=== PATIENT | male | born 1985 | race Caucasian/White ===

== ENCOUNTER → 2019-11-18 15:54 | Outpatient (BNVA) | payer OTHER, SELFPAY | PROVIDERS: Family Provider Family Medicine; PCP Family Medicine; Visit Provider Family Medicine | DX: E78.5 Hyperlipidemia, unspecified (principal); F41.9 Anxiety disorder, unspecified | CPT/HCPCS: 36415; 80053 ==

== ENCOUNTER → 2019-11-27 10:14 | Outpatient (BNVA) | payer OTHER, SELFPAY | PROVIDERS: Family Provider Family Medicine; PCP Family Medicine; Visit Provider Nurse Practitioner Family | DX: R11.2 Nausea with vomiting, unspecified (principal); K52.9 Noninfective gastroenteritis and colitis, unspecified | CPT/HCPCS: 87804 ==

== ENCOUNTER → 2020-03-31 13:16 | Outpatient (BNVA) | payer OTHER, SELFPAY | PROVIDERS: Family Provider Family Medicine; PCP Family Medicine; Visit Provider Family Medicine | DX: E78.5 Hyperlipidemia, unspecified (principal) | CPT/HCPCS: 80061 ==

== ENCOUNTER 2023-10-13 08:51 | Observation (INO) | payer BC, SELFPAY ==
[2023-10-13] VITALS (11 sets, daily range): BP systolic 135–163; BP diastolic 82–92; PULSE 59–81; RESP 12–27; TEMP 36.3–37.2; O2SAT 96–100; BMI 29.0
--- NOTE | 2023-10-13 09:04 | ECG_ITS ---
[facility] Test Date: 2023-10-13 Pat Name: Jourdan Green Department: Room: Gender: Male Supervisor [employer]: : 1985 Requested By: Jay Dolan Order Number: [id number] MD: Willam Martínez M.D. Measurements Intervals [place] Rate: 60 P: 37 [place]: 159 QRS: 1 QRSD: 105 T: 24 QT: 417 QTc: 418 Interpretive Statements SINUS RHYTHM No previous ECG available for comparison Electronically Signed On 10-13-2023 9:47:38 LAUNDRY TECHNICIAN by Willam Martínez M.D. [id number]
--- NOTE | 2023-10-13 09:06 | XRR_ITS ---
PROCEDURE INFORMATION: Exam: XR Chest Exam date and time: 10/13/2023 9:15 AM Age: 37 years old Clinical indication: Angina; Additional info: Chest pain TECHNIQUE: Imaging protocol: Radiologic exam of the chest. Views: 1 view. COMPARISON: No relevant prior studies available. FINDINGS: Lungs: Mild linear atelectasis versus scarring in the left lung base. No consolidation. Pleural spaces: Unremarkable. No pleural effusion. No pneumothorax. Heart/Mediastinum: Unremarkable. No cardiomegaly. Bones/joints: Unremarkable. XR/XR chest 1V portable [id number] IMPRESSION: No acute findings.
--- NOTE | 2023-10-13 09:15 | ED_ITS ---
HPI - Chest Pain 2 General: Chief Complaint: Chest Pain Stated Complaint: chest pains, abd pains Time Seen by Provider: 10/13/23 08:52 History of Present Illness: Patient presents to the ER with right upper quadrant abdominal epigastric type pain that radiates into his chest. Patient states his pain started yesterday and throughout the night he becomes very nauseous. He threw up multiple times throughout the night and cannot keep anything down. Patient has never been like this before. Patient has had a least 3 abdominal surgeries. For hernia repair. Review of Systems 2 General: Reports: 10 or more systems reviewed and unremarkable except in HPI and below PFSH ED 2 PFSH: Medical History (Updated 10/13/23 @ 10:58 by Jay Dolan DO) Dyslipidemia Anxiety and depression H/O fracture of lower leg Surgical History H/O vasectomy H/O hernia repair x3 Family History Other Diabetes Lupus Psychiatric illness Social History Smoking and tobacco/nicotine status: current every day tobacco/nicotine user cigarettes Packs smoked per day: 1.5 Alcohol intake: current Alcohol intake frequency: holidays/special occasions only Substance/Drug Use: never Physical Exam 2 Const: COMMON NORMALS: no acute distress, average body habitus, patient oriented x3, no limitations, healthy appearing, alert and well nourished HENMT: COMMON NORMALS: normocephalic, atraumatic, hearing grossly normal bilaterally, external ears normal, Normal external nose present, moist oral mucous membranes and oropharynx normal HEAD & SCALP: normocephalic and atraumatic NOSE: Normal external nose present EXTERNAL EAR: Yes external ears normal Neck/C-Spine: COMMON NORMALS: full ROM, no lymphadenopathy, supple, no meningeal signs, no JVD and Thyroid normal THYROID: Thyroid normal Chest: COMMONS NORMALS: normal inspection of the chest and normal palpation of entire chest wall Resp: COMMON NORMALS: normal respiratory effort, No retractions, No use of accessory muscles and clear to auscultation bilaterally AUSCULTATION: clear to auscultation bilaterally Cardio: COMMON NORMALS: no JVD, regular rate, regular rhythm, S1 normal heart sound present, S2 normal heart sound present, No gallops present (Cardio), No clicks present (Cardio), No murmurs present (Cardio) and No rub (Cardio) R ATE: regular rate RHYTHM: regular rhythm HEART SOUNDS: S1 normal heart sound present and S2 normal heart sound present GI: COMMON NORMALS: Normal to inspection, nondistended, normoactive bowel sounds present, Soft to palpation, No hepatosplenomegaly present and no masses; negative for non-tender (Tender to palpate right upper quadrant epigastric region.) PALPATION: Yes Soft to palpation and Yes No hepatosplenomegaly present Neuro: COMMON NORMALS: patient oriented x3 SENSORIUM/ORIENTATION: Yes alert MENINGEAL SIGNS: Yes no meningeal signs Course 2 Vital Signs: Vital signs: Vital Signs Temperature 98 F 10/13/23 09:00 Pulse Rate 59 L 10/13/23 09:04 Respiratory Rate 18 10/13/23 09:04 Blood Pressure 153/91 10/13/23 09:04 Pulse Oximetry 98 10/13/23 09:04 Oxygen Delivery Me thod Room Air 10/13/23 09:00 MDM - Chest Pain Medical Decision Making Patient workup for his right upper quadrant epigastric abdominal pain that end up showing a white count of 16,000 and acute appendicitis per CT scan. Dr. Menendez was consulted to come to the ER and evaluated the patient and agreed to take him to surgery. Dr. Menendez put the orders in. Differential Diagnosis Unlikely acute massive pulmonary embolism, acute respiratory failure, acute myocardial infarction, cardiac arrest or sudden cardiac Medical Records I reviewed the patient's medical records. Lab Data I reviewed the patient's lab results. 10/13/23 09:08 10/13/23 09:08 Radiology Impressions Chest X-Ray 10/13/23 09:06 IMPRESSION: No acute findings. Abdomen/Pelvis CT 10/13/23 09:53 IMPRESSION: 1. Acute uncomplicated appendicitis. 2. Hepatic steatosis. ADDENDUM: 10/13/23 1034 THIS REPORT CONTAINS FINDINGS THAT MAY BE CRITICAL TO PATIENT CARE. The findings were verbally communicated via telephone conference with Jay Hsokins at 10:32 AM PACKING MACHINE FEEDER on 10/13/2023. The findings were acknowledged and understood. Laboratory Results WBC 16.25 10^3/uL (3.29-11.43) H 10/13/23 09:08 RBC 5.40 10^6/uL (3.85-5.65) 10/13/23 09:08 Hgb 16.50 g/dL (11.27-16.99) 10/13/23 09:08 Hct 47.8 % (37-53) 10/13/23 09:08 MCV 88.5 fl (82-101) 10/13/23 09:08 MCH 30.6 pg (27-33) 10/13/23 09:08 MCHC 34.5 g/dL (30-55) 10/13/23 09:08 RDW 12.3 % (12.1-15.1) 10/13/23 09:08 Plt Count 251 10^3/cmm (157-399) 10/13/23 09:08 MPV 9.8 fL (7.4-10.4) 10/13/23 09:08 Neut % (Auto) 88.8 % 10/13/23 09:08 Lymph % (Auto) 8.1 % 10/13/23 09:08 Cam[place] % (Auto) 2.4 % 10/13/23 09:08 Eos % (Auto) 0.1 % 10/13/23 09:08 Baso % (Auto) 0.2 % 10/13/23 09:08 Neut # (Auto) 14.45 10^3/uL (1.8-7.7) H 10/13/23 09:08 Lymph # (Auto) 1.3 10^3/uL (0.8-4.8) 10/13/23 09:08 [place] # (Auto) 0.4 10^3/uL (0.2-0.9) 10/13/23 09:08 Eos # (Auto) 0.0 10^3/uL (0.0-0.8) 10/13/23 09:08 Baso # (Auto) 0.0 10^3/uL (0.0-0.1) 10/13/23 09:08 Nucleated RBC % (auto) 0 % 10/13/23 09:08 Nucleated RBCs # 0.0 /100WBC 10/13/23 09:08 Sodium 138 mmol/L (136-145) 10/13/23 09:08 Potassium 4.6 mmol/L (3.5-5.1) 10/13/23 09:08 Chloride 103 mmol/L (98-107) 10/13/23 09:08 Carbon Dioxide 26 mmol/L (22-29) 10/13/23 09:08 Anion Gap 13.6 (5-19) 10/13/23 09:08 BUN 9 mg/dL (6-20) 10/13/23 09:08 Creatinine 0.8 mg/dL (0.7-1.2) 10/13/23 09:08 GFR Calculation 108.8 mL/min (90-130) 10/13/23 09:08 Glucose 130 mg/dL (65-115) H 10/13/23 09:08 Calculated Osmolality 286 mOsm/kg (285-295) 10/13/23 09:08 Calcium 10.1 mg/dL (8.5-10.5) 10/13/23 09:08 Magnesium 1.8 mg/dL (1.7-2.3) 10/13/23 09:08 Total Bilirubin 0.4 mg/dL (0.15-1.2) 10/13/23 09:08 AST 30 U/L (0-40) 10/13/23 09:08 ALT 46 U/L (0-41) H 10/13/23 09:08 Alkaline Phosphatase 77 U/L (40-130) 10/13/23 09:08 Troponin T Baseline < 6 ng/L (0-15) 10/13/23 09:08 Total Protein 7.4 g/dL (6.6-8.7) 10/13/23 09:08 Albumin 4.8 g/dL (3.5-5.2) 10/13/23 09:08 Globulin 2.6 g/dL (1.3-4.6) 10/13/23 09:08 Lipase 21 U/L (13-60) 10/13/23 09:08 All radiology interpretation(s) finalized by discharge EKG Data EKG 1: I personally reviewed and interpreted this EKG as follows: EKG interpretation date: 10/13/23 EKG interpretation time: 09:01 Prior EKG tracings: not available for review Interpretation: EKG showed ventricular rate 60 bpm, GA interval 159, QRS duration 105, QTc of 418, sinus rhythm, no ST-T wave changes Discharge Plan Discharge Patient Disposition: Admitted As Inpatient Clinical Impression: Acute appendicitis Condition: Stable Prescriptions: No Action No Known Home Medications Referrals: Adriane Malone DO [Primary Care Provider] - Coding Level of Care Code ED Middleware Consultant for Ruy Gandara
[2023-10-13 09:17] LABS: Basophils % 0.2 %; Eosinophils % 0.1 %; Hematocrit 47.8 % (37-53); Lymphocytes # 1.3 10^3/uL (0.8-4.8); Lymphocytes % 8.1 %; Mean Corpuscular HGB Conc 34.5 g/dL (30-55); Mean Corpuscular Hemoglobin 30.6 pg (27-33); Mean Corpuscular Volume 88.5 fl (82-101); Mean Platelet Volume 9.8 fL (7.4-10.4); Monocytes # 0.4 10^3/uL (0.2-0.9); Monocytes % 2.4 %; Neutrophils # 14.45 10^3/uL (1.8-7.7); Neutrophils % 88.8 %; Nucleated Red Blood Cells % 0 %; Platelet Count 251 10^3/cmm (157-399); Red Cell Distribution Width 12.3 % (12.1-15.1); White Blood Count 16.25 10^3/uL (3.29-11.43)
[2023-10-13 09:35] LABS: Troponin(5th) Baseline < 6 ng/L (0-15)
[2023-10-13 09:46] LABS: Alanine Aminotransferase 46 U/L (0-41); Albumin Level 4.8 g/dL (3.5-5.2); Alkaline Phosphatase 77 U/L (40-130); Blood Urea Nitrogen 9 mg/dL (6-20); Calcium 10.1 mg/dL (8.5-10.5); Carbon Dioxide 26 mmol/L (22-29); Chloride 103 mmol/L (98-107); Globulin 2.6 g/dL (1.3-4.6); Glomerular Filtration Rate 108.8 mL/min (90-130); Glucose 130 mg/dL (65-115); Lipase 21 U/L (13-60); Osmolality Calculated 286 mOsm/kg (285-295); Sodium 138 mmol/L (136-145); Total Bilirubin 0.4 mg/dL (0.15-1.2); Total Protein 7.4 g/dL (6.6-8.7)
[2023-10-13 09:50] LABS: Anion Gap 13.6 (5-19); Aspartate Amino Transferase 30 U/L (0-40); Potassium 4.6 mmol/L (3.5-5.1)
--- NOTE | 2023-10-13 09:53 | CTR_ITS ---
PROCEDURE INFORMATION: Exam: CT Abdomen And Pelvis With Contrast Exam date and time: 10/13/2023 10:09 AM Age: 37 years old Clinical indication: Abdominal pain; Localized; Right upper quadrant (ruq); Prior surgery; Surgery date: 6+ months; Surgery type: Hernia x 3; Additional info: Ruq/epigastric pain n/v TECHNIQUE: Imaging protocol: Computed tomography of the abdomen and pelvis with contrast. Radiation optimization: All CT scans at this facility use at least one of these dose optimization techniques: automated exposure control; mA and/or kV adjustment per patient size (includes targeted exams where dose is matched to clinical indication); or iterative reconstruction. Contrast material: OMNI 350; Contrast volume: 100 ml; Contrast route: INTRAVENOUS (IV); REPORTING DATA: Count of CT and Cardiac NM exams in prior 12 months: This patient has received 0 known CTs and 0 known cardiac nuclear medicine studies in the 12 months prior to the current study. COMPARISON: CR (CHEST, ) 10/13/2023 9:15 AM RADIATION DOSE METRICS: Total DLP (mGy-cm): 617.17 FINDINGS: Lungs: Mild dependent atelectasis. Liver: Diffusely hypoattenuating liver with relative sparing adjacent to the gallbladder fossa. Gallbladder and bile ducts: Normal. No calcified stones. No ductal dilation. Pancreas: Normal without ductal dilatation. Spleen: Normal. Adrenal glands: Normal. No mass. Kidneys and ureters: Normal. No hydronephrosis. Stomach and bowel: Unremarkable. No obstruction. No mucosal thickening. Appendix: Dilated appendix measuring 1.1 cm in diameter with heterogeneous contents and mild periappendiceal fat stranding. Intraperitoneal space: No free air, free fluid, or well-organized fluid collection. Vasculature: Unremarkable. No abdominal aortic aneurysm. Lymph nodes: No enlarged lymph nodes. Urinary bladder: Urinary bladder is unremarkable. Reproductive: Unremarkable as visualized. Bones/joints: No acute fracture. Bilateral sacroiliac joint degenerative change. Mild lumbar spine degenerative changes. Soft tissues: Small fat containing umbilical and right inguinal hernias. CT/CT abdomen pelvis w con* [id number] IMPRESSION: 1. Acute uncomplicated appendicitis. 2. Hepatic steatosis.
[2023-10-13] MEDS: ketorolac 30 mg/mL INJ IVP (09:57)
[2023-10-13] MEDS: ondansetron 2 mg/ML SDV 2 mL 4 MG IVP ×3 (09:57→15:33)
[2023-10-13] MEDS: sodium chloride 0.9% 1,000 ML 999 ML IV (09:57)
[2023-10-13 10:00] LABS: Magnesium 1.8 mg/dL (1.7-2.3)
--- NOTE | 2023-10-13 11:03 | P.HP_ITS ---
Providers/Chief Complaint 2 Admitting Physician: Shon Primary Care Provider: Adriane Malone DO Chief Complaint: chest pains, abd pains History of Present Illness Jourdan Green is a 37 year old male who presents with a 12 to 18-hour history of abdominal pain. The patient's had multiple episodes of emesis. He denies fever or chills. He denies constipation or diarrhea. The patient did have a couple bites of dinner last night at around 7 PM. The patient never had pain like this before. The pain started in his right lower quadrant. The patient's pain has not moved. The pain is worse with moving. The pain feels better with the patient being stationary. Review of Systems 2 General: Reports: 10 or more systems reviewed and unremarkable except in HPI and below Medications/Allergies Home Medications Medication Instructions Recorded Confirmed Last Taken Type No Known Home Medications 10/13/23 10/13/23 Unknown History Allergies Allergy/AdvReac Type Severity Reaction Status Date / Time No Known Allergies Allergy Verified 10/13/23 10:02 PFSH Acute 2 PFSH: Medical History Dyslipidemia Anxiety and depression H/O fracture of lower leg Surgical History H/O vasectomy H/O hernia repair x3 Family History Other Diabetes Lupus Psychiatric illness Social History Smoking and tobacco/nicotine status: current every day tobacco/nicotine user cigarettes Packs smoked per day: 1.5 Alcohol intake: current Alcohol intake frequency: holidays/special occasions only Substance/Drug Use: never Vitals/I&O/Wt Last Vital Signs Temp 98 F 10/13/23 09:00 Pulse 59 L 10/13/23 09:04 Resp 18 10/13/23 09:04 BP 153/91 10/13/23 09:04 Pulse Ox 98 10/13/23 09:04 O2 Del Method Room Air 10/13/23 09:00 Weight last 48 hrs Weight 180 lb Physical Exam 2 Narrative: General: No acute distress HEENT: Is normocephalic atraumatic Lungs: Clear to auscultation Heart: Regular rate and rhythm without murmurs. There is no S3 or S4. There is no rubs clicks or JVD noted Abdomen: Soft, nondistended, right lower quadrant tenderness with rebound. The patient has a positive Rovsing sign. There are no masses that I can appreciate. There is no hernias that I can appreciate. There is no hepatosplenomegaly Extremities: There is no obvious deformities or point tenderness suggestive of a fracture. The patient has no clubbing cyanosis or edema Neurologic: The patient is awake, alert, oriented x 3. The patient's Jorge L Coma Scale is 15. The patient moves all 4 extremities without difficulty. The patient's [place] Coma Scale is 15. The patient sensations intact to light touch throughout. Data 10/13/23 09:08 10/13/23 09:08 Attestation for Other Data: I personally reviewed and interpreted the following: (Labs and CT scan of the abdomen and pelvis) A&P Assessment and plan (1) Acute appendicitis: Will admit the patient to the surgery service. Will start the patient on Zosyn. Will schedule the patient for a laparoscopic appendectomy. The risk and benefits of this procedure been explained to the patient. The patient seems to understand the risk and benefits and would like to proceed. The patient asked if he can go home tonight. I told the patient I would like to keep the patient overnight for an additional dose of IV antibiotics. If he insists on going home he can sign out AGAINST MEDICAL ADVICE. Qualifiers: Acute appendicitis type: with localized peritonitis Appendicitis abscess presence: without abscess Appendicitis gangrene presence: without gangrene Appendicitis perforation presence: without perforation Qualified Code(s): K35.30 - Acute appendicitis with localized peritonitis, without perforation or gangrene Attestations 2 Medical Necessity Statement*: Admit for operative intervention Coding Level of Care Code 04425 Diagnoses Acute appendicitis K35.30 Acute appendicitis type: with localized peritonitis Appendicitis abscess presence: without abscess Appendicitis gangrene presence: without gangrene Appendicitis perforation presence: without perforation
[2023-10-13] MEDS: piperacillin-tazobactam 4.5 GM in sodium chloride 0.9% (plus) 50 ML IV (11:17)
[2023-10-13] MEDS: sodium chloride 0.9% 1,000 ML 125 ML IV ×2 (11:31→21:11)
[2023-10-13] MEDS: nicotine 21 mg Patch 1 PATCH TRANSDERMA (11:32)
[2023-10-13 11:36] LABS: Troponin 5 2HR 6.25 ng/L (0-15); Troponin 5 2HR Delta 0.25001 ABS# (0-10)
--- NOTE | 2023-10-13 13:30 | PC.NURSE ---
Pt had Zosyn in ED. No Ortho Nurse antibiotic per Dr Menendez
--- NOTE | 2023-10-13 13:59 | P.ANESASSM_ITS ---
Pre-Anesthetic Assessment Height/Weight: Height 1.68 m Weight 81.647 kg Temp Pulse Resp BP Pulse Ox O2 Del Method 98.9 F 60 18 144/91 97 Room Air 10/13/23 13:00 10/13/23 13:00 10/13/23 13:00 10/13/23 13:00 10/13/23 13:00 10/13/23 13:00 Preop Diagnosis: abdominal pain Operation Date: 10/13/23 12:35 Proposed Procedures p Laparoscopic Appendectomy(Right) - Espinoza Menendez MD Familial anesthetic complications: none Was Beta Tanika taken within 24 hours: N/A Was Clonidine taken within 24 hours: N/A Social Tobacco and No alcohol Exam alert, oriented x 3 and regular rate & rhythm Airway Submandibular: within normal limits Cervical ROM: within normal limits Mallampati: Class II Dentition: chipped (Poor dentition) Comments: Comments: [place] [facility] Chronic Obstructive Pulmonary Disease Metabolic Hyperlipidemia Neuropsych Anxiety and Depression Anesthetic Plan ASA status: 2E Anesthesia: General (RSI) Medications/Allergies Home Medications Medication Instructions Recorded Confirmed Last Taken Type No Known Home Medications 10/13/23 10/13/23 Unknown History Allergies Allergy/AdvReac Type Severity Reaction Status Date / Time No Known Allergies Allergy Verified 10/13/23 12:54 Current Medications Generic Name Dose Route Start Last Admin Trade Name Freq PRN Reason Stop Dose Admin Sodium Chloride 1,000 mls @ 125 mls/hr 10/13/23 10:45 10/13/23 11:31 Sodium Chloride 0.9% IV 125 mls/hr .Q8H SISI Administration PFSH Anesthesia Medical History Dyslipidemia Anxiety and depression H/O fracture of lower leg Surgical History H/O vasectomy H/O hernia repair x3 Family History Other Diabetes Lupus Psychiatric illness Social History Smoking and tobacco/nicotine status: current every day tobacco/nicotine user cigarettes Packs smoked per day: 1.5 Alcohol intake: current Alcohol intake frequency: holidays/special occasions only Substance/Drug Use: never Data Anesthesia 10/13/23 09:08 10/13/23 09:08 Short CBC 10/13/23 Range/Units 09:08 WBC 16.25 H (3.29-11.43) 10^3/uL Hgb 16.50 (11.27-16.99) g/dL Hct 47.8 (37-53) % MCV 88.5 (82-101) fl Plt Count 251 (157-399) 10^3/cmm Neut % (Auto) 88.8 % Neut # (Auto) 14.45 H (1.8-7.7) 10^3/uL BMP 10/13/23 09:08 Sodium 138 Potassium 4.6 Chloride 103 Carbon Dioxide 26 BUN 9 Creatinine 0.8 Glucose 130 H Calcium 10.1 Cardiac Enzymes 10/13/23 10/13/23 Range/Units 09:08 11:09 Troponin T Baseline < 6 (0-15) ng/L Troponin T 120 Minute 6.25 (0-15) ng/L Delta Troponin T 0.18449 (0-10) ABS# Liver Function 10/13/23 Range/Units 09:08 Total Bilirubin 0.4 (0.15-1.2) mg/dL AST 30 (0-40) U/L ALT 46 H (0-41) U/L Alkaline Phosphatase 77 (40-130) U/L Albumin 4.8 (3.5-5.2) g/dL Cardiac Studies: 2 No Data to Display
[2023-10-13] MEDS: fentaNYL 50 mcg/mL INJ 2mL IVP (14:14)
[2023-10-13] MEDS: HYDROmorphone 1 mg/mL INJ 1 mL 0.5 MG IVP (15:32)
--- NOTE | 2023-10-13 18:22 | PM.OP ---
Operative Report Date of procedure: October 13, 2023 Pre-op diagnosis: Acute appendicitis Post-op diagnosis: same Procedure done: Laparoscopic appendectomy Pathology: Appendix Surgeon: Espinoza Menendez Surgeon: Espinoza Menendez MD Anesthesia: General Estimated blood loss (mL): 10 Complications: None noted Findings: This patient had acute suppurative appendicitis. The appendix was not ruptured. The appendix was removed without difficulty. The appendiceal stump was flush with the cecum. Condition: stable Disposition: PACU Brief History: This is a 37-year-old gentleman who presents to the emergency room with abdominal pain. The patient went a CT scan of his abdomen pelvis while in the emergency room. The CT scan showed a 10 mm appendix. It was thickened. There was some strep pending. There was no evidence of perforation. This was consistent with acute appendicitis. The risk and benefits of laparoscopic appendectomy have been explained to the patient. The patient seemed understand the risk and benefits and would like to proceed. Procedure: The patient was brought to the operating room placed in the supine position. After adequate general endotracheal anesthesia, the patient's abdomen is prepped and draped in usual sterile fashion. Following this a timeout was performed. The patient identifiers as well as the goals procedure were discussed. Everyone in room agreed. A towel clip was placed on each side of the umbilicus and lifted towards the ceiling. A curvilinear incision was made the superior aspect of the umbilicus with an 11 blade knife. Hemostats were used to dissect down to the fascia. Then through this incision a 12 mm port was placed directly into the abdomen. Camera was placed through this port and the abdomen was insufflated to 15 mmHg. There is no evidence of injury. Now 2 other ports were placed a 12 mm port was placed in the left lower quadrant and a 5 mm port was placed in the right lower quadrant. This was placed just above the symphysis pubis. Both of these latter ports were placed under direct vision. The patient was now placed in Trendelenburg and rolled to his left side down his right side up in order for the bowels to follow white from the appendix. The cecum was easily located. The appendix which was suppurative nonruptured there is actually a small area of necrosis on the appendix. This was towards the tip. Using a Bonnie the appendix was grasped. Now using a [place] a window was created in the mesoappendix. A staple was placed across the appendix. The stapler was a JONATHAN stapler. It had a blue load. This was fired across the appendix. This amputated the appendix. Now, a JONATHAN stapler was placed across the mesoappendix. The JONATHAN stapler was loaded with a white load. It was fired. There was a small piece of mesoappendix to the left. Therefore another white load was used and this was fired across the remaining mesoappendix. The appendix was now placed in an Endobag. The patient was allowed to flatten out. We again inspected the mesoappendix. There is no evidence of bleeding. We inspected the appendiceal stump. It was flush with the cecum. Now the Endobag was pulled out of the left lower quadrant incision. The abdomen was allowed to deflate. The patient had some oozing from his incisions. Using 0 Vicryl in a [id number] fashion the 212 mm ports were closed. And then using 4-0 Monocryl in a subcuticular fashion the skin was closed at all 3 ports. Dermabond was applied. The patient was awakened and taken recovery room in stable condition. I spoke with the patient's . I explained to her the above findings. All questions were addressed.
--- NOTE | 2023-10-13 18:50 | ANE.PACU2 ---
Inpatient post-anesthesia follow up: Airway intact: Yes Vital signs: Temperature 98.0 F Pulse Rate 64 Respiratory Rate 18 Blood Pressure 128/70 Pulse Oximetry 97 Oxygen Delivery Me thod Room Air Oxygen Flow Rate 6 Fraction of Inspir ed Oxygen Hydration adequate: Yes Nausea and vomiting: No Pain level: 1 Mental status: Baseline
[2023-10-13 19:32] LABS: Troponin 5 6HR Delta 0.00001 ng/L (0-12)
[2023-10-14] VITALS: BP 121/74; PULSE 75; RESP 18; TEMP 36.7; O2SAT 97
[2023-10-14] MEDS: sodium chloride 0.9% 1,000 ML 125 ML IV (03:55)
[2023-10-14 04:00] VITALS: BP 116/67; PULSE 68; RESP 17; TEMP 36.7; O2SAT 95
[2023-10-14 04:40] LABS: Basophils % 0.1 %; Hematocrit 41.1 % (37-53); Lymphocytes # 1.4 10^3/uL (0.8-4.8); Lymphocytes % 8.2 %; Mean Corpuscular HGB Conc 34.1 g/dL (30-55); Mean Corpuscular Hemoglobin 30.4 pg (27-33); Mean Corpuscular Volume 89.2 fl (82-101); Monocytes # 0.3 10^3/uL (0.2-0.9); Monocytes % 1.8 %; Neutrophils # 15.34 10^3/uL (1.8-7.7); Neutrophils % 89.5 %; Nucleated Red Blood Cells % 0 %; Platelet Count 212 10^3/cmm (157-399); Red Blood Count 4.61 10^6/uL (3.85-5.65); Red Cell Distribution Width 12.2 % (12.1-15.1); White Blood Count 17.11 10^3/uL (3.29-11.43)
[2023-10-14 05:03] LABS: Anion Gap 15.6 (5-19); Blood Urea Nitrogen 7 mg/dL (6-20); Calcium 8.3 mg/dL (8.5-10.5); Carbon Dioxide 21 mmol/L (22-29); Chloride 107 mmol/L (98-107); Glomerular Filtration Rate 126.9 mL/min (90-130); Glucose 173 mg/dL (65-115); Osmolality Calculated 292 mOsm/kg (285-295); Potassium 3.6 mmol/L (3.5-5.1); Sodium 140 mmol/L (136-145)
[2023-10-14 07:58] VITALS: BP 128/70; PULSE 64; RESP 18; O2SAT 97
[2023-10-14] MEDS: piperacillin-tazobactam 3.375 GM in sodium chloride 0.9% (plus) 50 ML IV (09:45)
--- NOTE | 2023-10-14 10:37 | P.PN_ITS ---
Subjective 2 Subjective: This patient was hemodynamically stable overnight. The patient is afebrile. The patient denies abdominal pain. The patient had no nausea or vomiting. The patient is tolerated a regular diet. Medications: Reviewed: Yes Vitals/I&O/Wt Last Vital Signs Temp 98.0 F 10/14/23 04:00 Pulse 64 10/14/23 07:58 Resp 18 10/14/23 07:58 BP 128/70 10/14/23 07:58 Pulse Ox 97 10/14/23 07:58 O2 Del Method Room Air 10/14/23 07:58 O2 Flow Rate 6 10/13/23 18:27 10/13/23 10/14/23 10/14/23 22:59 06:59 14:59 Intake Total 1999 841.667 / 2891.667 240 / 240 Output Total Balance 1996 841.667 / 2888.667 240 / 240 Weight last 48 hrs Weight 180 lb 7 oz Weight 180 lb Weight 180 lb Physical Exam 2 Narrative: Lungs: Clear to auscultation Heart: Regular in rhythm Abdomen: Soft, nontender without masses. The patient's wounds are without evidence of infection. Data 10/14/23 04:32 10/14/23 04:32 Attestation for Other Data: I personally reviewed and interpreted the following: (All of the patient's labs.) A&P Assessment and plan (1) Acute appendicitis: This patient is doing well. Is somewhat concerning that the patient's white blood cell count is elevated to 17,000. The patient is getting another dose of Zosyn today. Will send the patient home on 4 days worth of Augmentin. The patient can follow-up with Dr. Stevens in 1 week. The patient may shower. He is to take a bird bath today. He can shower tomorrow. The patient is to return to work on restricted duty for the next 3 to 4 days. After that the patient can return to normal activities. Please see the patient's discharge instructions. Qualifiers: Acute appendicitis type: with localized peritonitis Appendicitis abscess presence: without abscess Appendicitis gangrene presence: without gangrene Appendicitis perforation presence: without perforation Qualified Code(s): K35.30 - Acute appendicitis with localized peritonitis, without perforation or gangrene Attestations 2 Medical Necessity Statement*: Discharge home today Coding Level of Care Code Acute Code for Chg Fwd Diagnoses Acute appendicitis K35.30 Acute appendicitis type: with localized peritonitis Appendicitis abscess presence: without abscess Appendicitis gangrene presence: without gangrene Appendicitis perforation presence: without perforation
--- NOTE | 2023-10-14 11:01 | PC.NURSE ---
patient verbalized understanding of discharge instructions, home medications, and follow ups. Augmentin prescription called into [facility] pharmacy by this RN. patient insisted to walk out of facility and drive himself home
[2023-10-14 11:05] VITALS: BP 128/70; PULSE 64; RESP 18; O2SAT 97
== END 2023-10-14 10:55 | disposition home or self-care (01) ==
LOC: ER 11:04 → OR 11:49 → MEDSURG 14:58
PROVIDERS: Admitting Provider Surgery Surgical Critical Care; Emergency Provider Emergency Medicine; PCP Family Medicine; Visit Provider Surgery Surgical Critical Care
PROC: 0DTJ4ZZ Resection of Appendix, Percutaneous Endoscopic Approach (ICD-10-PCS; CPT 44970; principal; 2023-10-13 12:15)
DX: K35.30 Acute appendicitis with localized peritonitis, without perforation or gangrene (principal); J44.9 Chronic obstructive pulmonary disease, unspecified; E78.5 Hyperlipidemia, unspecified; F17.210 Nicotine dependence, cigarettes, uncomplicated
CPT/HCPCS: 44970; 36415; 71045; 74177; 80048; 80053; 83690; 83735; 84484; 85025; 88304; 93005; 96365; 96375; 96376; 99285; G0378; J1100; J1170; J1885; J2405; J2543; J2704; J2710; J3010; J3490; J7030; Q9967